=== PATIENT | female | born 1960 | race Caucasian/White ===

== ENCOUNTER 2020-02-10 07:02 | Day surgery (SDC) | payer OTHER ==
[2020-02-08 11:16] LABS: COVID AG,FIA SOURCE NASOPHARYNGEAL
[~2020-02-10] VITALS: Ht 157.5 cm; Wt 75.0 kg
[~2020-02-10 07:02] MED LIST: CYCLOPENTOLATE HCL 1% 2 ML OPHTHALMIC SOLUTION ONE; KETOROLAC TROMETHAMINE 0.5% 5 ML OPHTHALMIC SOLUTION ONE; MOXIFLOXACIN HCL 0.5% 3 ML OPHTHALMIC SOLUTION ONE; PHENYLEPHRINE HCL 2.5% 2 ML OPHTHALMIC SOLUTION ONE; RINGERS SOLUTION,LACTATED 500 ML IV ONE; TETRACAINE HCL/PF 0.5% 4 ML OPHTHALMIC SOLUTION ONE; TROPICAMIDE 1% 2 ML OPHTHALMIC SOLUTION ONE
[2020-02-10] MEDS ORDERED: DEXAMETHASONE SOD PHOS 4 MG/ML VIAL IVP ONE (07:03)
[2020-02-10] MEDS ORDERED: FentaNYL CITRATE-PF 100 MCG/2 ML VIAL IVP ONE (07:03)
[2020-02-10] MEDS ORDERED: HYALURONATE SODIUM 12 MG/ML 0.8 ML SYRINGE IO ONE (07:03)
[2020-02-10] MEDS ORDERED: LIDOCAINE/PF 1% 2 ML VIAL IARTIC ONE (07:03)
[2020-02-10] MEDS ORDERED: PrednisoLONE ACETATE 1% 5 ML OPHTHALMIC SUSPENSION OD ONE (07:03)
[2020-02-10] MEDS ORDERED: EPINEPHrine 1:1,000 [1 MG/ML] AMP IM ONE (07:03)
[2020-02-10] MEDS ORDERED: MIDAZOLAM HCL 2 MG/2 ML VIAL IVP ONE (07:03)
[2020-02-10] MEDS ORDERED: ONDANSETRON HCL 4 MG/2 ML VIAL IVP ONE (07:03)
[2020-02-10] MEDS ORDERED: POVIDONE-IODINE 10% 15 ML SOLUTION UD TP ONE (07:03)
[2020-02-10] MEDS ORDERED: HYALURONATE SOD/CHONDROITIN SOD 0.5 ML VIAL IO ONE (07:03)
[2020-02-10] MEDS ORDERED: ASPI-1111 PO (07:24)
[2020-02-10] MEDS ORDERED: PRED5DRO25 OD (07:24)
[2020-02-10] MEDS ORDERED: AMLO-257 PO (07:24)
[2020-02-10] MEDS ORDERED: PARO20TA24 PO (07:24)
[2020-02-10] MEDS ORDERED: HYDR-1475 PO (07:24)
[2020-02-10] MEDS ORDERED: METF-960 PO (07:24)
[2020-02-10] MEDS ORDERED: PRAV20TA4 PO (07:24)
[2020-02-10] MEDS ORDERED: SITA100 PO (07:24)
[2020-02-10] MEDS ORDERED: INSU100I26 SQ (07:24)
[2020-02-10] MEDS: CYCLOPENTOLATE HCL 1% 2 ML OPHTHALMIC SOLUTION OD SCH ×3 (07:40→07:52)
[2020-02-10] MEDS: TROPICAMIDE 1% 2 ML OPHTHALMIC SOLUTION OD SCH ×3 (07:40→07:52)
[2020-02-10] MEDS: KETOROLAC TROMETHAMINE 0.5% 5 ML OPHTHALMIC SOLUTION OD SCH ×3 (07:40→07:52)
[2020-02-10] MEDS: MOXIFLOXACIN HCL 0.5% 3 ML OPHTHALMIC SOLUTION OD SCH ×3 (07:40→07:52)
[2020-02-10] MEDS: PHENYLEPHRINE HCL 2.5% 2 ML OPHTHALMIC SOLUTION OD SCH ×3 (07:41→07:52)
[2020-02-10 07:49] LABS: GLUCOMETER DEV NAME(LOC) SDS.; GLUCOSE,POINT OF CARE 130 MG/DL (70-110)
[2020-02-10] MEDS ORDERED: TETRACAINE HCL/PF 0.5% 4 ML OPHTHALMIC SOLUTION OD ONE (08:45)
[2020-02-10 09:45] LABS: GLUCOMETER DEV NAME(LOC) SDS.; GLUCOSE,POINT OF CARE 112 MG/DL (70-110)
== END 2020-02-10 10:05 | disposition home or self-care (01) ==
LOC: SURGERY 07:02
PROVIDERS: ATTEND Ophthalmology Glaucoma Specialist
DX: E11.36 Type 2 diabetes mellitus with diabetic cataract (principal); H25.11 Age-related nuclear cataract, right eye; H21.541 Posterior synechiae (iris), right eye; E11.3512 Type 2 diabetes mellitus with proliferative diabetic retinopathy with macular edema, left eye; Z79.899 Other long term (current) drug therapy; E78.00 Pure hypercholesterolemia, unspecified; Z20.828 Contact with and (suspected) exposure to other viral communicable diseases
CPT/HCPCS: 66982; 82962; 87426; C9803; J0171; J1100; J2250; J2405; J3010; J3490 ×2; J7120; V2632